=== PATIENT | male | born 1945 | race African-American/Black ===

== ENCOUNTER 2016-06-08 17:36 | Observation (INO) | payer OTHER ==
[~2016-06-08] VITALS: Ht 177.8 cm; Wt 59.3 kg
[~2016-06-08 17:36] MED LIST: ACID CONTROL150 MG PO; ACID CONTROL20 MG PO; ALPRAZOLAM0.25 M2 PO; ATORVASTATIN CA80 MG PO; CLOPIDOGREL75 MG PO; COREG6.25 M1 PO; Coreg PO; DUONEB 2.5-0.5 M3 ML IH; Ecotrin PO; Effient PO; FLEXERIL5 MG PO; Feosol PO; ISOSORBIDE MONO30 MG PO; LISINOPRIL20 MG PO; LO-DOSE ASPIRIN81 M1 PO; LOW DOSE ASPIRI81 M1 PO; LOW DOSE ASPIRI81 M2 PO; Lasix PO; Lipitor PO; METOPROLOL SUCC25 MG PO; NO HOME MEDS; Nitrostat,NitroQuick SL; PRINIVIL10 MG PO; PROAIR HFA8.5 GM IH; Percocet 5/325,Endoc PO; ROCEPHIN1000 MG IV; SENNA8.6 MG PO; TOPROL XL50 MG PO; TYLENOL REGULA325 MG PO; XARELTO20 MG PO; ZANTAC150 MG PO; ZITHROMAX500 M1 IV; Zestril,Prinivil PO
[2016-06-08 18:38] LABS: CHLORIDE 109 mEq/L (99-109); POTASSIUM 4.2 mEq/L (3.7-5.4); SODIUM 140 mEq/L (136-147)
[2016-06-08 18:39] LABS: INTER. NORMALIZED RATIO 1.1; PROTHROMBIN TIME 11.6 (9.2-11.2)
[2016-06-08 18:40] LABS: BASOPHIL COUNT 0.1 K/uL (0-0.1); EOSINOPHIL (%) 6.1 % (0-5); EOSINOPHIL COUNT 0.3 K/uL (0-0.3); GLUCOSE 84 mg/dL (70-99); HEMATOCRIT 34.2 % (38.0-50.0); IMMATURE GRANULOCYTE (%) 0.2 % (0.0-0.7); IMMATURE GRANULOCYTE COUNT 0.1 K/uL; MCH 27.5 PG (29.0-34.0); MCHC 32.7 G/DL (30.0-36.0); MCV 83.8 FL (86-99); MEAN PLAT.VOLUME 9.7 uM^3 (9.0-12.4); MONOCYTE COUNT 0.4 K/uL (0-0.8); NEUTROPHIL COUNT 2.7 K/uL (1.8-6.4); PLATELET COUNT 227 K/uL (156-360); RBC DIS.WIDTH-CV 16.1 % (11.8-14.6); RBC DIS.WIDTH-SD 48.9 % (39-53); RED BLOOD COUNT 4.08 M/uL (4.00-5.50); WHITE BLOOD COUNT 5.5 K/uL (4.1-10.2)
[2016-06-08 18:42] LABS: ANION GAP 7 MEQ/L (2-14); TOTAL BILIRUBIN 0.2 mg/dL (0.0-1.0)
[2016-06-08 18:44] LABS: ALKALINE PHOSPHATASE 97 IU/L (3-129); GFR ESTIMATE (CALCULATED) > 59 mL/min/
[2016-06-08 18:45] LABS: UREA NITROGEN (BUN) 13 mg/dL (9-23)
[2016-06-08 18:50] LABS: TROP-I INTERPRETATION NEGATIVE; TROPONIN-I < 0.01 ng/mL (0.0-0.30)
[2016-06-08] MEDS ORDERED: NITROSTAT0.4 MG SL (19:46)
[2016-06-09 01:11] LABS: TROP-I INTERPRETATION NEGATIVE; TROPONIN-I 0.02 ng/mL (0.0-0.30)
[2016-06-09 01:13] VITALS: BP 109/68
[2016-06-09 04:00] VITALS: BP 119/58
[2016-06-09 08:39] LABS: HEMATOCRIT 38.7 % (38.0-50.0); MCH 26.7 PG (29.0-34.0); MCHC 31.5 G/DL (30.0-36.0); MCV 84.7 FL (86-99); MEAN PLAT.VOLUME 10.4 uM^3 (9.0-12.4); PLATELET COUNT 273 K/uL (156-360); RBC DIS.WIDTH-CV 16.5 % (11.8-14.6); RBC DIS.WIDTH-SD 50.8 % (39-53); RED BLOOD COUNT 4.57 M/uL (4.00-5.50); WHITE BLOOD COUNT 4.4 K/uL (4.1-10.2)
[2016-06-09 08:45] LABS: TROP-I INTERPRETATION NEGATIVE; TROPONIN-I 0.01 ng/mL (0.0-0.30)
[2016-06-09 08:49] LABS: BASOPHIL COUNT 0.1 K/uL (0-0.1); EOSINOPHIL (%) 8.4 % (0-5); EOSINOPHIL COUNT 0.4 K/uL (0-0.3); LYMPHOCYTE COUNT 1.6 K/uL (1.0-2.8); MONOCYTE (%) 7.3 % (3-12); MONOCYTE COUNT 0.3 K/uL (0-0.8); NEUTROPHIL (%) 46.4 % (45-76)
[2016-06-09 09:00] LABS: ALKALINE PHOSPHATASE 97 IU/L (3-129); ANION GAP 6 MEQ/L (2-14); CHLORIDE 107 MEQ/L (99-109); GFR ESTIMATE (CALCULATED) > 59 mL/min/; GLUCOSE 92 mg/dL (70-99); POTASSIUM 4.4 MEQ/L (3.7-5.4); SAMPLE HEMOLYSIS CHECK 0; SAMPLE ICTERIC CHECK 0; SAMPLE LIPEMIA CHECK 0; SODIUM 140 MEQ/L (136-147); TOTAL BILIRUBIN 0.4 MG/DL (0.0-1.0); UREA NITROGEN (BUN) 12 mg/dL (9-23)
[2016-06-09 09:20] VITALS: BP 133/74
[2016-06-09 11:23] VITALS: BP 126/55
[2016-06-10] MEDS ORDERED: MEDROL DOSEPAK4 MG PO (21:38)
[2016-06-10] MEDS ORDERED: PROVENTIL HFA6.7 GM IH (21:38)
== END 2016-06-09 15:27 | disposition home or self-care (01) ==
LOC: EME 17:36 → EDOF 21:12 → 5WEST 06-09 00:12
PROVIDERS: Emergency Medicine; Internal Medicine
DX: R07.89 Other chest pain (principal); I25.10 Atherosclerotic heart disease of native coronary artery without angina pectoris; Z91.19 Patient's noncompliance with other medical treatment and regimen; Z59.0 Homelessness; I44.7 Left bundle-branch block, unspecified; I10 Essential (primary) hypertension; J44.9 Chronic obstructive pulmonary disease, unspecified; I48.2 Chronic atrial fibrillation; E78.5 Hyperlipidemia, unspecified; E11.9 Type 2 diabetes mellitus without complications; E78.00 Pure hypercholesterolemia, unspecified; Z95.1 Presence of aortocoronary bypass graft; F32.9 Major depressive disorder, single episode, unspecified; Z86.73 Personal history of transient ischemic attack (TIA), and cerebral infarction without residual deficits; F17.210 Nicotine dependence, cigarettes, uncomplicated; I25.2 Old myocardial infarction; Z95.5 Presence of coronary angioplasty implant and graft
CPT/HCPCS: 71020; 80053; 84484; 85025; 85610; 85730; 93005; 99202; 99281; 99285; G0378

== ENCOUNTER 2016-06-10 18:55 | Emergency (ER) | payer OTHER ==
[~2016-06-10] VITALS: Ht 177.8 cm; Wt 62.1 kg
[~2016-06-10 18:55] MED LIST changes: +NITROSTAT0.4 MG SL
[2016-06-10 19:47] LABS: EOSINOPHIL (%) 4.2 % (0-5); EOSINOPHIL COUNT 0.3 K/uL (0-0.3); HEMATOCRIT 41.9 % (38.0-50.0); IMMATURE GRANULOCYTE (%) 0.1 % (0.0-0.7); IMMATURE GRANULOCYTE COUNT 0.1 K/uL; LYMPHOCYTE COUNT 1.7 K/uL (1.0-2.8); MCH 27.8 PG (29.0-34.0); MCHC 33.2 G/DL (30.0-36.0); MCV 83.8 FL (86-99); MEAN PLAT.VOLUME 10.4 uM^3 (9.0-12.4); MONOCYTE (%) 6.5 % (3-12); MONOCYTE COUNT 0.5 K/uL (0-0.8); NEUTROPHIL (%) 66.3 % (45-76); NEUTROPHIL COUNT 5.1 K/uL (1.8-6.4); PLATELET COUNT 288 K/uL (156-360); RBC DIS.WIDTH-CV 16.1 % (11.8-14.6); RBC DIS.WIDTH-SD 49.9 % (39-53); WHITE BLOOD COUNT 7.6 K/uL (4.1-10.2)
[2016-06-10 19:55] LABS: CHLORIDE 107 mEq/L (99-109); SODIUM 141 mEq/L (136-147)
[2016-06-10 19:57] LABS: GLUCOSE 90 mg/dL (70-99)
[2016-06-10 19:58] LABS: ANION GAP 10 MEQ/L (2-14)
[2016-06-10 19:59] LABS: TOTAL BILIRUBIN 0.2 mg/dL (0.0-1.0)
[2016-06-10 20:01] LABS: ALKALINE PHOSPHATASE 114 IU/L (3-129); D-DIMER ELISA 1.03 mg/L FEU (< 0.57); GFR ESTIMATE (CALCULATED) > 59 mL/min/
[2016-06-10 20:02] LABS: UREA NITROGEN (BUN) 13 mg/dL (9-23)
[2016-06-10 20:04] LABS: TROP-I INTERPRETATION NEGATIVE; TROPONIN-I 0.01 ng/mL (0.0-0.30)
[2016-06-10 20:12] LABS: POTASSIUM 5.6 mEq/L (3.7-5.4)
[2016-06-10] MEDS ORDERED: MEDROL DOSEPAK4 MG PO (21:38)
[2016-06-10] MEDS ORDERED: PROVENTIL HFA6.7 GM IH (21:38)
[2016-06-10 22:11] VITALS: BP 160/92
== END 2016-06-10 22:11 | disposition home or self-care (01) ==
LOC: EME 18:55
PROVIDERS: Emergency Medicine
DX: J44.1 Chronic obstructive pulmonary disease with (acute) exacerbation (principal); R07.89 Other chest pain; I25.2 Old myocardial infarction; E78.5 Hyperlipidemia, unspecified; I10 Essential (primary) hypertension; F17.200 Nicotine dependence, unspecified, uncomplicated; Z86.73 Personal history of transient ischemic attack (TIA), and cerebral infarction without residual deficits; Z95.5 Presence of coronary angioplasty implant and graft
CPT/HCPCS: 71010; 71275; 80053; 84484; 85025; 85379; 93005; 94640; 99281; 99284; J1885